=== PATIENT | female | born 2000 | race Two or more races ===

== ENCOUNTER 2018-03-22 18:52 | Emergency (ER) | payer MEDICAID, OTHER ==
[~2018-03-22] VITALS: Ht 165.1 cm; Wt 68.0 kg
[2018-03-22 18:56] VITALS: BP 119/67
== END 2018-03-22 22:21 | disposition home or self-care (01) ==
LOC: ER 18:52
DX: S43.402A Unspecified sprain of left shoulder joint, initial encounter (principal); W21.01XA Struck by football, initial encounter; Y93.61 Activity, american tackle football; Y92.89 Other specified places as the place of occurrence of the external cause; Y99.8 Other external cause status

== ENCOUNTER 2018-07-09 17:55 | Emergency (ER) | payer SELFPAY ==
[~2018-07-09] VITALS: Ht 165.1 cm; Wt 69.4 kg
[2018-07-09 18:11] VITALS: BP 121/79
[2018-07-09] MEDS: LIDOCAINE 1% HCL (LOCAL ANESTH.) INJ 20ML MDV IJ ONE (19:30)
[2018-07-09] MEDS: cefTRIAXone SOD 1,000 MG VL IM ONE (20:40)
[2018-07-09] MEDS: KETOROLAC TROMETH 60MG/2ML VIAL IM ONE (20:40)
== END 2018-07-09 21:13 | disposition home or self-care (01) ==
LOC: ER 17:55
DX: H60.01 Abscess of right external ear (principal)
CPT/HCPCS: 96372; 99283; J0696; J1885

== ENCOUNTER 2019-11-14 11:44 | Observation (INO) | payer OTHER ==
[~2019-11-14] VITALS: Ht 165.1 cm; Wt 68.0 kg
[2019-11-14 11:59] VITALS: BP 143/77
[2019-11-14] MEDS ORDERED: FOLI1TAB6 PO (12:37)
[2019-11-14] MEDS ORDERED: PREN-96 PO (12:37)
[2019-11-14 12:48] LABS: Urine Bacteria MANY /hpf (None Seen); Urine Blood Negative /uL (Negative); Urine Budding Yeast OCCASIONAL /hpf (None Seen); Urine Mucus FEW (None Seen); Urine Specific Gravity 1.012 (1.001-1.035); Urine WBC 12 /hpf (0 - 5)
[2019-11-14] MEDS ORDERED: LACTATED RINGER'S 1,000 ML IV ONE (13:15)
[2019-11-14] MEDS ORDERED: cefTRIAXone 1GM/50ML D5W 50 ML IV ONE (13:15)
[2019-11-14] MEDS ORDERED: SODIUM CHLORIDE 0.9% 1,000 ML IV ONE (13:45)
== END 2019-11-14 15:45 | disposition home or self-care (01) | DRG 566 ==
LOC: ER 11:44 → LDRP 12:03
PROVIDERS: ADMIT Specialist; ATTEND Specialist
DX: O26.892 Other specified pregnancy related conditions, second trimester (principal); R10.30 Lower abdominal pain, unspecified; Z3A.20 20 weeks gestation of pregnancy
CPT/HCPCS: 76805; 81001; 81002; 96365; 99284; G0378; J0696; J7030

== ENCOUNTER 2024-03-31 15:26 | Emergency (ER) | payer MEDICAID, OTHER ==
[~2024-03-31] VITALS: Ht 167.6 cm; Wt 86.1 kg
[~2024-03-31 15:26] MED LIST: FOLI-119 PO; PREN-96 PO
[2024-03-31 15:53] VITALS: BP 126/76; PULSE 96; RESP 18; O2SAT 98
[2024-03-31] MEDS ORDERED: CEPH500C PO (18:06)
[2024-03-31] MEDS ORDERED: IBU600T PO (18:06)
== END 2024-03-31 19:15 | disposition home or self-care (01) ==
LOC: ER 15:26
DX: S60.042A Contusion of left ring finger without damage to nail, initial encounter (principal); L03.114 Cellulitis of left upper limb; X58.XXXA Exposure to other specified factors, initial encounter; Y93.89 Activity, other specified; Y92.89 Other specified places as the place of occurrence of the external cause; Y99.8 Other external cause status
CPT/HCPCS: 73130

== ENCOUNTER 2024-09-18 08:34 | Emergency (ER) | payer OTHER ==
[~2024-09-18] VITALS: Ht 167.6 cm; Wt 80.2 kg
[~2024-09-18 08:34] MED LIST changes: +CEPH500C PO; +IBU600T PO
[2024-09-18 09:15] VITALS: TEMP 98.7
[2024-09-18 10:14] LABS: Vaginal Trichomonas Not Present
[2024-09-18 10:15] LABS: Urine Bacteria FEW /hpf (None Seen); Urine Blood 2+ /uL (Negative); Urine Clarity Turbid (Clear); Urine Color Yellow (Yellow); Urine Mucus FEW (None Seen); Urine Protein, UAD 1+ (Negative); Urine Specific Gravity 1.031 (1.001-1.035); Urine Squamous Epithelial Cell MOD /hpf (<5); Urine Urobilinogen Normal (Negative); Urine WBC 11 /HPF (0-5); Urine pH 6.5 (5.0-9.0)
[2024-09-18 10:15] LABS: Vaginal Bacteria Rare; Vaginal Clue Cells None Seen; Vaginal Epithelial Cells Few
[2024-09-18 10:33] VITALS: BP 112/68; PULSE 95; RESP 16; O2SAT 98
[2024-09-18] MEDS ORDERED: CEPH500C PO (10:36)
--- NOTE | 2024-09-18 10:37 | ED.PDOC ---
General HPI Comments This is a pleasant 23-year-old female that is currently five weeks who presents with a chief complaint of vaginal discharge x5 days. Discharges described as brownish in color. No associated symptoms. Denies pruritus, burning, irritation, erythema, spotting Chief Complaint: Vaginal Discharge Time Seen by MD: 08:50 Primary Care Provider: None Reviewed notes: Nurses Notes, Medications, Allergies Allergies: Coded Allergies: NO KNOWN ALLERGIES (Unverified , 03/22/13) Home Meds Active Scripts Ibuprofen Micronized (MOTRIN TABLET) 600 Mg Tb, 600 MG PO TID PRN, #40 TAB *Black box warning-NSAIDS can increase risk of IN & hypertension, GI irritation, ulceration, bleed, perferation. Do not use post cardiac surgery. Use short duration/lowest effective dose. Prov:PRECIOUS WALKER MD 03/31/24 Cephalexin Monohydrate (Cephalexin) 500 Mg Cap, 500 MG PO Q6HR for 7 Days, #28 MG Prov:PRECIOUS WALKER MD 03/31/24 Reported Medications Vit W/ Ferrous Fumara ( One Daily) Daily Tab, 1 TAB PO DAILY, #90 TAB 3 Refills 11/14/19 Folic Acid (Folic Acid) 1 Mg Tab, 1 MG PO, TAB 11/14/19 Information Source: Patient Mode of Arrival: Ambulatory Past Medical History PAST MEDICAL HISTORY: Denies Surgical History: Denies all surgeries COMMERCIAL LOAN ANALYST History: No Pertinent COMMERCIAL LOAN ANALYST History Family History Family History: Unobtainable Social History Smoker: Non-Smoker Alcohol: Denies ETOH Use Drugs: Denies Drug Use Lives In: Home All Other Systems: Reviewed and Negative (Per HPI) Physical Exam General Appearance: No Apparent Distress, Normal HEENT: Normal ENT Inspection, Pharynx Normal, TMs Normal Neck: Full Range of Motion, Non-Tender, Normal, Normal Inspection Respiratory: Chest Non-Tender, Lungs Clear, No Accessory Muscle Use, No Respiratory Distress, Normal Breath Sounds Cardiovascular: No Edema, No JVD, No Murmur, No Gallop, Normal Peripheral Pulses, Regular Rate/Rhythm Breast Exam: Deferred Gastrointestinal: No Organomegaly, Non Tender, No Pulsatile Mass, Normal Bowel Sounds, Soft Genitalia: Other (Coke Burner in the room Shea JONESN:External vaginal exam no genital warts or lesions. Vaginal canal shows mild yellow/brown discharge. No vaginal bleeding or cervicitis.) Pelvic: Deferred Rectal: Deferred Extremities: No calf tenderness, Normal capillary refill, Normal inspection, Normal range of motion, Non-tender, No pedal edema Musculoskeletal : Apperance: Normal Neurologic: Alert, insurance claims examiner II-XII nml as Tested, No Motor Deficits, Normal Affect, Normal Mood, No Sensory Deficits Cerebellar Function: Normal Reflexes: Normal Skin: Dry, Normal Color, Warm Lymphatic: No Adenopathy Was a procedure done? Was a procedure done?: No Differential Diagnosis Kidney stone (Female): Other X-Ray, Labs, Meds, VS Vital Signs Date Time Temp Pulse Resp B/P (MAP) Pulse Ox O2 Delivery O2 Flow Rate FiO2 09/18/24 09:15 98.7 117 17 120/78 (92) 99 98.7 09/18/24 08:46 98.7 117 17 120/78 (92) 99 98.7 Lab Test 09/18/24 09:40 09/18/24 09:20 Range/Units Vaginal WBC (Wet Prep) Few Vaginal RBC (Wet Prep) Rare Vaginal Epithelial Cells (Wet Prep) Few Vaginal Bacteria (Wet Prep) Rare Vaginal Trichomonas (Wet Prep) Not present Vaginal Yeast (Wet Prep) None seen Vaginal Clue Cells (Wet Prep) None seen Urine Color Yellow Yellow Urine Clarity Turbid H Clear Urine pH 6.5 5.0-9.0 Urine Specific [place] 1.031 1.001-1.035 Urine Protein 1+ H Negative Urine Ketones Negative Negative Urine Blood 2+ H Negative /uL Urine Nitrite Negative Negative Urine Bilirubin Negative Negative Urine Urobilinogen Normal Negative mg/dL Urine Leukocyte Esterase 3+ Negative /uL Urine RBC 4 0 - 4 /hpf Urine Microscopic WBC 11 H 0-5 /HPF Urine Squamous Epithelial Cells Mod <5 /hpf Urine Bacteria Few H None Seen /hpf Urine Mucus Few None Seen Urine Glucose Normal Normal mg/dL Urine Test Positive Negative Chlamydia trachomatis (NE[facility]AE[facility]) Pending Neisseria gonorrhoeae (NEVAE[facility]) Pending X-Ray, Labs, Meds, VS Comment History and lab findings consistent with UTI Vital signs stable patient stable Patient tolerating p.o. fluids Encouraged parents to increase water intake Practice good personal hygiene. Always wipe from front to back Drink plenty of fluids to help flush bacteria out of the urinary tract Empty bladder completely as soon as you feel the urge Empty bladder after intercourse Prescribed p.o. antibiotics for presentation of symptoms Complete course of antibiotic therapy even if symptoms improve or resolve. There should be no leftover antibiotics as this can lead to antibiotic resistant bacteria and even worse infection. Parents verbalized understanding. Potential side effects discussed with patient including abdominal pain, nausea, diarrhea. On reevaluation, patient had symptomatic improvement. Patient is stable for discharge at this time. External notes reviewed. Test results and diagnostic imaging interpreted. All diagnostic findings, discharge care, education and instructions provided Follow-up with PCP in 2 to 3 days Patient verbalized understanding and agreed to treatment plan Vital signs stable, afebrile, no acute distress noted Patient ambulatory with strong steady gait Advised to return precautions for any new or worsening symptoms, return to ER immediately for re-evaluation Patient is aware that the purpose of this visit was for an acute medical emergency requiring emergent stabilization. Chronic conditions, including malignancies have not been ruled out. Patient is instructed to follow up with PCP as directed and discharge instructions for continued care and workup. If unable to arrange follow-up, patient is to return to the emergency department for reassessment. Patient (parent or legal guardian if applicable) was given verbal and written discharge instructions and acknowledges understanding. Time of 1ST Reevaluation: 10:35 Reevaluation 1ST: Improved Patient Education/Counseling: Diagnosis, Treatment Family Education/Counseling: Diagnosis, Treatment Departure 1 Departure Time of Disposition: 10:35 Impression: Primary Impression: UTI in Qualified Codes: O23.41 - Unspecified infection of urinary tract in , first trimester Disposition: HOME / SELF CARE / HOMELESS Condition: Stable e-Prescriptions Cephalexin Monohydrate (Cephalexin) 500 Mg Cap 1 CAP PO QID for 7 Days, #28 CAP 0 Refills Prov: LINDSEY NICKERSON NP 09/18/24 Discharged With: Self Critical Care Note Critical Care Time?: No Stability Stability form required: No Heart Score Heart Score: Heart Score Response (Comments) Value History N/A 0 EKG N/A 0 Age N/A 0 Risk Factors N/A 0 Troponin N/A 0 Total 0 LINDSEY NICKERSON NP Sep 18, 2024 10:37
== END 2024-09-18 10:57 | disposition home or self-care (01) ==
LOC: ER 08:38
DX: O23.41 Unspecified infection of urinary tract in pregnancy, first trimester (principal); N39.0 Urinary tract infection, site not specified; Z79.899 Other long term (current) drug therapy; Z3A.01 Less than 8 weeks gestation of pregnancy
CPT/HCPCS: 81001; 81025; 87210